=== PATIENT | male | born 1985 | race Caucasian/White ===

== ENCOUNTER 2025-05-23 08:34 | Emergency (ER) | payer OTHER, SELFPAY ==
--- OUTSIDE RECORDS SUMMARY | 2016-11-17 08:00 | XMS_ITS | Continuity of Care Document ---
Author Organization [place] [facility] Address [address] [place] [address] Phone Care Team Providers Care Petrographer Name Role Phone Services, Enabling Unavailable Unavailable Procedures Procedure Date Other Managed Care Other Managed Care Advance Directives Directive Yes / No Effective Date File Name No Information Encounters Encounter Description Practice Location Reason(s) For Visit Diagnoses Date Provider Providers Copied on Encounter Peng [facility], [address], [place], [place], [id number], tel:[phone] Enabling Services No Information 7-201 7 Services Enabling. [address] [place], [address]. tel:[phone] Peng [facility], [address] [place] [address],[address], [place], [place], [id number], tel:[phone] Enabling Services No Information 3-201 7 Services Enabling. [address] [place], [address]. tel:[phone] Family History Family Member Type Diagnosis Age At Onset No Information Payers Payer name Insurance type Covered democrat ID Authoriza tion(s) No Information Social History Type Description Quantity Date Captured Comments Sex Male Smoking Status No Information Chief Complaint And Reason For Visit No Information Reason For Referral Reason For Referral No Information History Of Present Illness Encounter Date Complaint History Of Prese nt Illness No Information Functional Status Date Functional Assessmen t No Information Instructions Date Instruction Additional Infor mation No Information Assessments Type Assessment Date No Information Patient Care Teams Name Effective Dates (start - stop) Status Members No Information
--- OUTSIDE RECORDS SUMMARY | 2025-05-22 11:08 | XMS_ITS | Encounter Summary ---
Author Organization [facility] Address [address] [place] [id number] Phone Care Team Providers Care Shelter Director Name Role Phone Gabino Lilly NP Primary Care Provider Encounter Details Date Type Department Care Team (Late st Contact Info) Description 05/22/2025 11:08 AM EDT - 05/22/2025 11:09 AM EDT Emergency [facility] [address] [place] [address] Discharge Disposition: Left Without Being Seen Social History Tobacco Use Types Packs/Day Years Used Date Smoking Tobacco: Every Day Smokeless Tobacco: Never Alcohol Use Standard Drinks/Week Comments Yes 20 (1 standard drink = 0.6 oz pu re alcohol) Education Answer Date Recorded Are you interested in more education? Not on sonal e 12/30/2022 Are you concerned about learning? Not on file 12/30/2022 No 12/30/2022 No 12/30/2022 Food Answer Date Recorded Within the past 6 months we worried whether our food would run out before we got money to buy more. Never True 05/23/2025 Within the past 6 months the food we bought just didn't last and we didn't have enough money to get more. Never True Residential Stability Answer Date Recor ded What is your housing situation today? I have andressa sing 05/23/2025 How many times have you moved in the past 12 mon ths? One time 05/23/2025 Paying for Meds Answer Date Recorded Do you have trouble paying for medicines? No 05/23/2025 Paying Utility Bills Answer Date Record ed Do you have trouble paying your heating or elect ricity bill? No 05/23/2025 Transportation Answer Date Recorded Has the lack of transportati on kept you from medical appointments or from getting medications? No 05/23/2025 Digital Access Answer Date Recorded No 05/23/2025 Yes 05/23/2025 Do you have reliable internet access at home? Ye s 05/23/2025 Do you have a device (e.g., phone, tablet, computer) with a working camera? Yes 05/23/2025 Intimate Partner Violence Answer Date R ecorded Are you denied basic needs s uch as food, clothing, or medical care? No 05/23/2025 In the past 12 months have y ou been in a relationship with a person who hurts, threatens, or tries to control you? No 05/23/2025 Are you denied basic needs s uch as food, clothing, or medical care? No 05/23/2025 In the past 12 months have y ou been in a relationship with a person who hurts, threatens, or tries to control you? No 05/23/2025 Sex and Gender Information Value Date Recorded Sex Assigned at Male 07/09/2021 8:48 PM EDT Legal Sex Male 2:09 PM EDT Gender Identity Male 07/09/2021 8:48 PM EDT Sexual Orientation Choose not to disclose 2020 8:48 PM EDT documented as of this encounter Medications at Time of Discharge acetaminophen (TYLENOL) 650 MG CR tablet Take 650 mg by mouth 3 (three) times a day. For 3 days starting Thursday 03/2903/29/2025 doxepin (SINEQUAN) 50 MG capsule Take 100 mg by mouth nightly at bedtime as needed (insomnia/depr ession). 05/20/2024 DULoxetine (CYMBALTA) 60 MG capsule Take 60 mg by mouth daily. 06/20/2024 hydrOXYzine (VISTARIL) 50 MG capsule Take 50 mg by mouth nightly at bedtime as needed for anxiety. 06/27/2024 prazosin (MINIPRESS) 2 MG capsule Take 2 mg by mouth nightly at bedtime. 06/20/2024 propranoloL (INDERAL LA) 60 mg 24 hr capsule Take 60 mg by mouth daily. 05/20/2024 documented as of this encounter Plan of Treatment Not on file documented as of this encounter Visit Diagnoses Not on filedocumented in this encounter Care Teams Shelter Director Relationship Specialty Start Date End Date Gabino Lilly NP [address] [place] [address] PCP - General Family Medicine 07/09/21 documented as of this encounter Additional Source Comments The information contained in this document represents components of the legal health record. It is not the complete legal health record.[facility]
[2025-05-23 08:39] VITALS: BP 137/90; BP 149/102; PULSE 80; PULSE 92; RESP 16; TEMP 36; O2SAT 96; O2SAT 97; BMI 31.9
[2025-05-23 08:43] VITALS: BP 149/102; PULSE 92; RESP 16; TEMP 36; O2SAT 96
--- NOTE | 2025-05-23 08:52 | ECG_ITS ---
Test Reason : TO BE MEDICALLY CLEARED Blood Pressure : */* mmHG Vent. Rate : 81 BPM Atrial Rate : 81 BPM P-R Int : 130 ms QRS Dur : 86 ms QT Int : 410 ms P-R-T Axes : 29 38 11 degrees QTcB Int : 476 ms Normal sinus rhythm with sinus arrhythmia Normal ECG No previous ECGs available Referred By: Dima Nelson Electronically Signed By: YOSEF GASPAR
--- NOTE | 2025-05-23 08:52 | ED.GENADULT ---
HPI - General Adult General Chief complaint: General Medical Stated complaint: [facility],CLOS[facility] @ [facility] PER EMS Time Seen by Provider: 05/23/25 08:41 Source: patient and EMS Mode of arrival: EMS Limitations: no limitations History of Present Illness ED Provider: DR. Nelson HPI narrative: 40-year-old male with history of alcohol use last drink was yesterday at 09:00, patient brought in by ambulance from [facility] for medical clearance before detox rehab admission. Patient currently complain of symptoms, no SOB, no CP. Related Data Allergies Allergy/AdvReac Type Severity Reaction Status Date / Time No Known Allergies Allergy Verified 05/23/25 08:42 Review of Systems Review of Systems: All other systems are reviewed and are negative Constitutional: Reports as per HPI and Reports no additional constitutional complaints Eyes: Reports as per HPI and Reports no additional eye complaints Reports system reviewed and no additional complaints, except as documented Cardiovascular: Reports as per HPI and Reports no additional cardiovascular complaints Respiratory: Reports as per HPI and Reports no additional respiratory complaints Gastrointestinal: Reports as per HPI and Reports no additional gastrointestinal complaints Genitourinary: Reports no additional female genitourinary complaints Musculoskeletal: Reports no additional musculoskeletal complaints Skin/Breast: Reports system reviewed and no additional complaints, except as docu Psychiatric: Reports no additional psychiatric complaints Endocrine: Reports no additional endocrine complaints Hematologic/Lymphatic: Reports no additional hematologic/lymphatic complaints Allergic/Immunologic: Reports no additional allergic/immunologic complaints Reports system reviewed and no additional complaints, except as documented and Reports Abnormal speech present PMFSH Social History Social History Alcohol intake: current Smoked in Last 30 Days: No Use of substances other than those prescribed or required for medical reasons: No Advance Directives: No Advance Directives Information Provided: Yes Do you have a plan to hurt others: No Plan Physical Exam ED Vital Signs: Vital Signs - 24 hr 05/23/25 08:39 05/23/25 08:43 05/23/25 11:07 Temperature 96.8 F 96.8 F Pulse Rate 92 92 88 Respiratory Rate 16 16 18 Blood Pressure 149/102 H 149/102 H 161/87 H Pulse Oximetry 96 96 99 Oxygen Delivery Method Room Air Room Air Room Air BMI result Body Mass Index 31.9 Vital signs have been reviewed and appear to be correct. Blood pressure elevated. Heart rate normal. Respiratory rate normal. Temperature normal. Oxygen saturation normal. Appearance: Alert. Oriented X3. No acute distress. Head: Normal external exam. Normocephalic. Atraumatic. No Mckenzie signs noted. No raccoon eyes noted Eyes: PERRLA. EOMI. Conjunctiva and sclera normal. Eyelids normal. ENT: TM's Normal. Pharynx normal. Uvula midline. Moist mucous membranes. No trismus noted. No drooling noted. No muffled voice noted. Neck: Normal inspection. Neck supple. FROM. No adenopathy. Thyroid Normal. No meningeal signs. No neck mass noted. CVS: Normal heart rate and rhythm. Heart sound normal. No murmurs noted. Pulses normal throughout. Respiratory: No respiratory distress. Painless inspiration. Breath sounds normal. No wheezes/rales/rhonchi noted. Chest nontender. No accessory muscle usage noted or decreased air movement noted. Abdomen: Soft and nontender. Bowel sounds normal in all 4 quadrants. No distention noted. No organomegaly noted. No visible injury noted. Back: No CVA tenderness. Full range of motion noted. Skin: Skin warm and dry. Normal skin color. Normal skin turgor. No rashes/lesions/lacerations noted. Extremities: No lower extremity edema. Extremities exhibit normal range of motion. Extremities nontender. Neuro: Oriented X 3. Cranial nerve exam: II-XII are grossly intact No motor deficit. No sensory deficit. Reflexes normal. Course Reevaluation(s) Reevaluation #1: Medically cleared will discharge back to [place] rehab. Time: 11:24 Medications Administered Discontinued Medications Generic Name Dose Route Start Last Admin Trade Name Freq PRN Reason Stop Dose Admin Ibuprofen 800 mg 05/23/25 09:55 05/23/25 09:58 Ibuprofen 800 Mg Tablet PO 05/23/25 09:56 800 mg ONCE ONE Administration Phenobarbital 45 mg 05/23/25 11:13 05/23/25 11:16 Phenobarbital 15 Mg Tablet PO 05/23/25 11:14 45 mg ONCE ONE Administration Medical Decision Making Differential Diagnosis Differential Diagnoses: The differential diagnosis associated with the presentation includes (Medical clearance, electrolyte derangement, severe anemia.) Admission/Observation Consideration of admission/observation: Escalation of care including admission/observation considered Lab Data MDM Lab Attestation statement: I reviewed the patient's lab results. 05/23/25 09:52 05/23/25 09:52 Labs: Lab Results 05/23/25 Range/Units 09:52 WBC 5.9 (4.8-10.8) X10*3/uL RBC 4.27 L (4.60-5.80) X10*6/uL Hgb 13.7 L (14.0-18.0) g/dl Hct 38.3 L (42.0-52.0) % MCV 89.7 (80.0-98.0) fL MCH 32.1 (27.0-33.0) pg MCHC 35.8 (31.0-36.0) g/dl RDW 12.7 (11.0-16.0) % Plt Count 128 L (160-400) X10*3/uL MPV 8.5 L (9.4-12.4) fL Immature Gran % (Auto) 0.3 (0.0-0.4) % Neut % (Auto) 61.3 (45-73) % Lymph % (Auto) 18.5 L (20-40) % [place] % (Auto) 13.9 H (2-11) % Eos % (Auto) 5.1 H (0-4) % Baso % (Auto) 0.9 (0-2) % Lymph # (Auto) 1.1 L (1.2-4.9) X10*3/uL [place] # (Auto) 0.8 (0.1-1.2) X10*3/uL Eos # (Auto) 0.3 (0.0-0.4) X10*3/uL Baso # (Auto) 0.1 (0.0-0.2) X10*3/uL Abs Immat Gran (auto) 0.02 (0.00-0.03) X10*3/uL Absolute Neuts (auto) 3.6 (2.0-8.3) x10*3/uL Absolute Nucleated RBC 0.000 (0.0-0.012) X10*3/uL Nucleated RBC % (auto) 0.0 (0.0-0.2) /100WBC Sodium 139 (135-145) mmol/L Potassium 3.5 (3.3-5.1) mmol/L Chloride 100 (96-108) mmol/L Carbon Dioxide 29 (22-29) mmol/L Anion Gap 14 (12-20) BUN 8 L (9-16) mg/dL Creatinine 0.91 (0.5-1.4) mg/dL Estim Creat Clear Calc 123.3 Estimated GFR > 60 Random Glucose 103 (60-115) mg/dL Calcium 8.5 (8.4-10.2) mg/dL Total Bilirubin 1.7 H (0.0-1.0) mg/dL Direct Bilirubin 0.7 H (0.0-0.5) mg/dL AST 243 H (5-37) U/L ALT 249 H (0-40) U/L Alkaline Phosphatase 125 H (39-117) U/L Total Protein 7.0 (6.5-8.0) g/dL Albumin 4.2 (3.5-5.0) g/dL Lipase 6 L (8-78) U/L Urine Color Dark Yellow Urine Appearance Clear Urine pH 8.0 (5.0-9.0) Ur Specific [place] 1.015 (1.005-1.025) Urine Protein Negative (Neg-Trace) mg/dL Urine Glucose (UA) Negative (Negative) mg/dL Urine Ketones Negative (Negative) mg/dL Urine Blood Negative (Negative) Urine Nitrite Negative (Negative) Ur Leukocyte Esterase Negative (Negative) Ethyl Alcohol < 10 mg/dL Discharge Plan Discharge Clinical Impression: Medical clearance for psychiatric admission Patient Disposition: Home, Self-Care Instructions: Medical Clearance for Psychiatric Care (ED) Print Language: Khmer
--- NOTE | 2025-05-23 08:53 | PC.NURSE ---
40 M presents to ED to be medically cleared prior to detox at [place]. A+OX4, calm, cooperative, ambulatory. Pt denies any pain or discomfort. RR even and unlabored, denies CP or SOB. Spoke to the [facility] detox, they stated they need the following: EKG, CBC with diff, JOY, BMP, Liver panel to be faxed over to [phone]. Provider aware.
--- NOTE | 2025-05-23 09:55 | PC.NURSE ---
Pt requesting motrin at this time for TORREZ, provider aware, verbal order for motrin placed at this time.
--- NOTE | 2025-05-23 09:57 | MHC.EDTECH ---
Labs drawn/urine obtained sent.
[2025-05-23 09:58] LABS: MANUAL DIFF FLAG NO
[2025-05-23 09:59] LABS: Hematocrit 38.3 % (42.0-52.0); Hemoglobin 13.7 g/dl (14.0-18.0); Imm Gran Abs Auto 0.02 X10*3/uL (0.00-0.03); Imm Gran Pct Auto 0.3 % (0.0-0.4); Lymphocytes Absolute Auto 1.1 X10*3/uL (1.2-4.9); Mean Corpuscular HGB Conc 35.8 g/dl (31.0-36.0); Mean Corpuscular Hemoglobin 32.1 pg (27.0-33.0); Mean Corpuscular Volume 89.7 fL (80.0-98.0); NRBC Abs Auto 0.000 X10*3/uL (0.0-0.012); NRBC Pct Auto 0.0 /100WBC (0.0-0.2); Platelet Count 128 X10*3/uL (160-400); Red Blood Count 4.27 X10*6/uL (4.60-5.80); White Blood Count 5.9 X10*3/uL (4.8-10.8)
[2025-05-23 10:00] LABS: Appearance Urine Clear; Glucose Urine UA Negative (Negative); PH 8.0 (5.0-9.0); Specific Gravity - Urine 1.015 (1.005-1.025)
[2025-05-23 10:16] LABS: Alanine Aminotransferase 249 U/L (0-40); Albumin Level 4.2 g/dL (3.5-5.0); Alkaline Phosphatase 125 U/L (39-117); Anion Gap 14 (12-20); Aspartate Amino Transferase 243 U/L (5-37); Blood Urea Nitrogen 8 mg/dL (9-16); Calcium 8.5 mg/dL (8.4-10.2); Carbon Dioxide 29 mmol/L (22-29); Chloride 100 mmol/L (96-108); Creatinine Clr Calc Pharmacy 123.3; Estimated Glomerular Filt Rate > 60; Lipase 6 U/L (8-78); Potassium 3.5 mmol/L (3.3-5.1); Sodium 139 mmol/L (135-145); Total Protein 7.0 g/dL (6.5-8.0)
--- OUTSIDE RECORDS SUMMARY | 2025-05-23 10:35 | XMS_ITS | Clinical Summary ---
Author Organization [facility] Address [address] [facility] [address] [place] [phone] Phone Care Team Providers Care Livestock Showman Name Role Phone Gabino Lilly NP Primary Care Provider [phone] Allergies No known active allergies Medications acetaminophen (TYLENOL) 650 MG CR tablet Take 650 mg by mouth 3 (three) times a day. For 3 days starting Thursday 03/29 5 Active doxepin (SINEQUAN) 50 MG capsule Take 100 mg by mouth nightly at bedtime as needed (insomnia/depre ssion). 4 Active hydrOXYzine (VISTARIL) 50 MG capsule Take 50 mg by mouth nightly at bedtime as needed for anxiety. 4 Active DULoxetine (CYMBALTA) 60 MG capsule Take 60 mg by mouth daily. 4 Active prazosin (MINIPRESS) 2 MG capsule Take 2 mg by mouth nightly at bedtime. 4 Active propranoloL (INDERAL LA) 60 mg 24 hr capsule Take 60 mg by mouth daily. 4 Active amoxicillin-cl avulanate (AUGMENTIN) 875-125 mg per tablet Take 1 tablet (875 mg of amoxicillin total) by mouth 2 (two) times a day. 14 tablet 4 05/22/20 Discontin ued(No longer taking) cefpodoxime (VANTIN) 200 MG tablet Take 200 mg by mouth 2 (two) times a day. For 7 days starting Sunday03/29/25 5 05/22/20 25 Discontin ued(No longer taking) doxycycline hyclate (DORYX) 100 MG tablet Take 100 mg by mouth 2 (two) times a day. For 7 days starting Sunday03/29/25 05/22/20 Discontin ued(No longer taking) Active Problems Problem Noted Date Diagnosed Date Alcohol withdrawal syndrome without complication 05/22/2025 Assessment & Plan (05/22/2025 11:25 PM EDT): -Patient has been drinking heavily for the past 3 days about 1 handle of vodka daily -He is tachycardic with nausea, vomiting, elevated lactate, elevated LFTs -He received a loading dose of phenobarbital and a rescue dose of 130 mg (slightly less than 2 mg/kg) - Continue thiamine, folate, multivitamin -IVF -Given prior history, follow-up U tox -Follow-up social work consult -Trend LFTs Smoker 05/22/2025 Assessment & Plan (05/22/2025 11:25 PM EDT): - Smoking cessation advised, nicotine patch ordered Suicidal ideation 03/30/2025 Encounters Date Type Department Care Team Description 05/22/2025 4:09 PM EDT - 05/23/2025 7:06 AM EDT Hospital Encounter [facility] Telemetry [facility] [address] [place] [address] Moses Cruz MD Israeli, Diana A, DO Green, Tracy L, MD Discharge Disposition: Home or Self Care 05/22/2025 11:08 AM EDT - 05/22/2025 11:09 AM EDT Emergency [facility] [address] [place] [address] Discharge Disposition: Left Without Being Seen 03/31/2025 6:00 PM EDT Ancillary Procedure [facility] Emergency Department - [facility] [address] [place] [address] Agustín Rodrigez MD 03/30/2025 3:21 PM EDT - 03/31/2025 7:48 PM EDT Hospital Encounter [facility] Emergency [address] [place] [address] Duane, Pierce T, MD DayAlana rubio MD Noone, Caleb J, MD Andrade, Olyn Amanda, MD Discharge Disposition: Home or Self Care from Last 3 Months Social History Tobacco Use Types Packs/Day Years [...] have you moved in the past 12 sun th? One time 05/23/2025 Paying for Meds Answer [...] not to disclose 2020 8:48 PM EDT Last Filed Vital Signs Vital Sign Reading Time Taken Comments Blood Pressure 154/92 05/23/2025 4:00 AM EDT Pulse 95 05/23/2025 4:00 AM EDT Temperature 36.6 C (97.9 F) 05/23/2025 4:00 AM EDT Respiratory Rate 18 05/23/2025 4:00 AM EDT Oxygen Saturation 98% 05/23/2025 4:00 AM EDT Inhaled Oxygen Concentration - - Weight 95.8 kg (211 lb 1.6 oz) 05/23/2025 12:00 AM EDT Height 175.3 cm (5' 9 ) 05/23/2025 12:00 AM EDT Body Mass Index 31.17 05/23/2025 12:00 AM EDT Plan of Treatment Health Maintenance Due Date Last Done Comments DEPRESSION SCREENING 1996 SMOKING Hx and SMOKELESS TOBACCO SCREENING 1997 PNEUMOCOCCAL VACCINES (0-49 years) (1 of 2 - PCV) 2003 LIPID PANEL 06/09/2016 06/09/2011 INFLUENZA VACCINE (#1) 2025 05/04/2022 COVID-19 VACCINE (1 - 2023-2 5 season) 2025 Adult Td,Tdap Booster 08/04/2026 08/04/2016 SCREENING FOR DIABETES 03/30/2028 03/30/2025 HEPATITIS C SCREENING Completed 03/30/2025 , 03/26/2025, 03/26/2025 HIV ONE-TIME SCREENING (18-6 5 YEARS) Completed 03/30/2025 HEPATITIS A VACCINES Aged Out No long er eligible based on patient's age to complete this topic HIB VACCINES Aged Out No longer eligi ble based on patient's age to complete this topic MENINGOCOCCAL VACCINES (ACWY) Aged Out No longer eligible based on patient's age to complete this topic MENINGOCOCCAL VACCINES (B) Aged Out N o longer eligible based on patient's age to complete this topic Medical Devices Not on file Procedures Procedure Name Priority Date/Time Associated Diagnosis Comments TOXICOLOGY SCREEN, URINE STAT 05/23/2025 12:11 AM EDT LACTIC ACID (LACTATE) STAT 05/22/2025 9:48 PM EDT LACTIC ACID (LACTATE) STAT 05/22/2025 7:52 PM EDT ETHANOL, BLOOD STAT 05/22/2025 6:28 PM EDT PHOSPHORUS STAT 05/22/2025 4:47 PM EDT MAGNESIUM STAT 05/22/2025 4:47 PM EDT LIPASE STAT 05/22/2025 4:47 PM EDT LACTIC ACID (LACTATE) STAT 05/22/2025 4:47 PM EDT LFTS (HEPATIC PANEL) STAT 05/22/2025 4:47 PM EDT BASIC METABOLIC PANEL STAT 05/22/2025 4:47 PM EDT CBC AND DIFFERENTIAL STAT 05/22/2025 4:47 PM EDT US BEDSIDE Routine 03/31/2025 5:56 PM EDT ECG 12-LEAD STAT 03/31/2025 1:13 PM EDT COVID PANDEMIC RESPIRATORY VIRAL ORDER (PRO) Routine 03/31/2025 1:05 PM EDT HIV-1/2 ANTIGEN/ANTIBODY STAT 03/30/2025 10:30 PM EDT HEPATITIS B CORE ANTIBODY, TOTAL STAT 03/30/2025 10:29 PM EDT HEPATITIS B SURFACE ANTIGEN STAT 03/30/2025 10:29 PM EDT HEPATITIS C ANTIBODY, QUALITATIVE STAT 03/30/2025 10:29 PM EDT POCT GLUCOSE Routine 03/30/2025 3:54 PM EDT ECG 12-LEAD STAT 03/30/2025 3:47 PM EDT SALICYLATES STAT 03/30/2025 3:44 PM EDT ACETAMINOPHEN LEVEL STAT 03/30/2025 3 :44 PM EDT ETHANOL, BLOOD STAT 03/30/2025 3:44 PM EDT LFTS (HEPATIC PANEL) STAT 03/30/2025 3:44 PM EDT BASIC METABOLIC PANEL STAT 03/30/2025 3:44 PM EDT CBC AND DIFFERENTIAL STAT 03/30/2025 3:44 PM EDT TOXICOLOGY SCREEN, URINE STAT 03/30/2025 3:38 PM EDT from Last 3 Months Results * (ABNORMAL) Toxicology screen, urine (05/23/2025 12:11 AM EDT) Only the most recent of2 resultswithin the time period is included. URINE CANNABINOIDS NONE DETECTED NONE DETECTED [facility] Comment:Cutoff: 50 ng/mL URINE COCAINE METAB Positive(A) NONE DETECTED [facility] Comment:Cutoff: 300 ng/mL URINE AMPHETAMINES NONE DETECTED NONE DETECTED [facility] Comment:Cutoff: 1000 ng/mL URINE METHADONE NONE DETECTED NONE DETECTED [facility] Comment:Cutoff: 300 ng/mL URINE OPIATES NONE DETECTED NONE DETECTED [facility] Comment:Cutoff: 300 ng/mL URINE PHENCYCLIDINE NONE DETECTED NONE DETECTED [facility] Comment:Cutoff: 25 ng/mL URINE OXYCODONE NONE DETECTED NONE DETECTED [facility] Comment:Cutoff: 300 ng/mL URINE BARBITURATES Positive(A) NONE DETECTED [facility] Comment:Cutoff: 200 ng/mL URINE BENZODIAZEPINE NONE DETECTED NONE DETECTED [facility] Comment:Cutoff: 200 ng/mL URINE BUPRENORPHINE NONE DETECTED NONE DETECTED [facility] Comment:Cutoff: 5 ng/mL Fentanyl, urine NONE DETECTED NONE DETECTED [facility] Comment: Cutoff: 5 ng/mL INTERPRETATION FOR TOXICOLOGY PANEL: These results are unconfirmed and should be used for Medical Treatment purposes only. Urine (Urine) 05/23/2025 12: 11 AM EDT 05/23/2025 12:22 AM EDT Emerita Kevin DO URINE ORDERABLES Final Result Performing Organization Address City/[facility]/ZIP Co de Phone Number [address] [address] * (ABNORMAL) Lactate (05/22/2025 9:48 PM EDT) Only the most recent of3 resultswithin the time period is included. LACTATE 3.68(HH) 0.50 - 2.20 mmol/L [facility] Comment: Critical value: Results called to and read back by: EDIS Rai ED AT [id number] Blood 05/22/2025 9:48 PM EDT 05/22/2025 9:53 PM EDT Moses Cruz MD LAB BLOOD ORDERABLES Final Resu lt [address] [address] * (ABNORMAL) Ethanol, blood (05/22/2025 6:28 PM EDT) Only the most recent of2 resultswithin the time period is included. ETHANOL 42(H) <10 mg/dL [facility] Blood 05/22/2025 6:28 PM EDT 05/22/2025 6:51 PM EDT us Moses Cruz MD LAB BLOOD ORDERABLES Final Resu lt Performing Organization Address City/[facility]/ZIP Co de Phone Number [address] [address] * (ABNORMAL) LFTs (hepatic panel) (05/22/2025 4:47 PM EDT) Only the most recent of2 resultswithin the time period is included. ALKALINE PHOSPHATASE 149(H) 39 - 117 U/L [facility] TOTAL BILIRUBIN 1.3(H) 0.0 - 1.2 mg/dL [facility] DIRECT BILIRUBIN 0.6(H) 0.0 - 0.2 mg/dL [facility] Bilirubin (Indirect) 0.7 0 - 1.5 mg/dL [facility] AST 212(H) 0 - 37 U/L [facility] ALT 225(H) 0 - 40 U/L [facility] TOTAL PROTEIN 8.8(H) 6.5 - 8.0 g/dL [facility] ALBUMIN 4.6 3.9 - 4.8 g/dL [facility] GLOBULIN 4.2 1 - 4.8 g/dL [facility] A/G Ratio 1.10 1.00 - 4.80 RATIO [facility] Blood 05/22/2025 4:47 PM EDT 05/22/2025 4:53 PM EDT Moses Cruz MD LAB BLOOD ORDERABLES Final Resu lt Performing Organization Address [facility]/ZIP Co de Phone Number [address] [address] * (ABNORMAL) CBC and differential (05/22/2025 4:47 PM EDT) Only the most recent of2 resultswithin the time period is included. WBC 9.25 4.00 - 11.00 K/uL [facility] RBC 5.19 4.50 - 5.90 M/uL [facility] HGB 16.6 13.5 - 17.5 g/dL [facility] HCT 46.0 41.0 - 53.0 % [facility] PLT 237 150 - 450 K/uL [facility] MCV 88.6 80.0 - 100.0 fL [facility] MCH 32.0(H) 27.0 - 31.0 pg [facility] MCHC 36.1(H) 32.0 - 36.0 g/dL [facility] RDW 12.8 11.5 - 14.5 % [facility] MPV 9.1 8.4 - 12.0 fL [facility] NRBC 0.00 0.00 /100 WBCs [facility] ABSOLUTE NRBC 0.00 0.00 K/uL [facility] DIFF METHOD Auto [facility] NEUTS 72.1 48.0 - 76.0 % [facility] LYMPHS 14.3(L) 18.0 - 41.0 % [facility] MONOS 10.8 4.0 - 11.0 % [facility] EOS 1.2 0.0 - 5.0 % [facility] BASOS 0.8 0.0 - 1.5 % [facility] Granulocytes, immature (%) 0.8 0.0 - 0.9 % [facility] ABSOLUTE NEUTS 6.68 1.92 - 7.60 K/uL [facility] ABSOLUTE LYMPHS 1.32 0.72 - 4.10 K/uL [facility] ABSOLUTE MONOS 1.00 0.16 - 1.10 K/uL [facility] ABSOLUTE EOS 0.11 0.00 - 0.50 K/uL [facility] ABSOLUTE BASOS 0.07 0.00 - 0.15 K/uL [facility] Granulocytes, immature 0.07 0.00 - 0.09 K/uL [facility] Blood 05/22/2025 4:47 PM EDT 05/22/2025 4:53 PM EDT us Moses Cruz MD LAB BLOOD ORDERABLES Final Resu lt [facility] [address] [place] [address] * Phosphorus (05/22/2025 4:47 PM EDT) PHOSPHORUS 3.2 2.7 - 4.5 mg/dL [facility] Blood 05/22/2025 4:47 PM EDT 05/22/2025 4:53 PM EDT us Moses Cruz MD LAB BLOOD ORDERABLES Final Resu lt Performing Organization Address City/[facility]/ZIP Co de Phone Number [address] [address] * Magnesium (05/22/2025 4:47 PM EDT) Pathologist [facility] [place] MAGNESIUM 2.0 1.6 - 2.6 mg/dL [facility] Blood 05/22/2025 4:47 PM EDT 05/22/2025 4:53 PM EDT us Moses Cruz MD LAB BLOOD ORDERABLES Final Resu lt Performing Organization Address [facility] Co de Phone Number [address] [address] * (ABNORMAL) Lipase (05/22/2025 4:47 PM EDT) [facility] LIPASE 13(L) 16 - 63 U/L [facility] Blood 05/22/2025 4:47 PM EDT 05/22/2025 4:53 PM EDT us Moses Cruz MD LAB BLOOD ORDERABLES Final Resu lt Performing Organization Address [facility] Co de Phone Number [address] [address] * (ABNORMAL) Basic metabolic panel (05/22/2025 4:47 PM EDT) Only the most recent of2 resultswithin the time period is included. Pathologist [facility] [place] SODIUM 141 133 - 146 mmol/L [facility] CHLORIDE 97 96 - 108 mmol/L [facility] POTASSIUM 3.7 3.3 - 5.1 mmol/L [facility] CO2 23 21 - 35 mmol/L [facility] BUN 4(L) 6 - 19 mg/dL [facility] CREATININE 1.00 0.5 - 1.5 mg/dL [facility] GLUCOSE 131(H) 70 - 99 mg/dL [facility] CALCIUM 9.5 8.4 - 10.3 mg/dL [facility] EGFR 97 >59 mL/min/1.7 3m2 [facility] Comment:Estimated glomerular filtration rate calculated using the CKD-EPI refit equation. ANION GAP 25(H) 10 - 20 mmol/L [facility] Blood 05/22/2025 4:47 PM EDT 05/22/2025 4:53 PM EDT us Moses Cruz MD LAB BLOOD ORDERABLES Final Resu lt Performing Organization Address City/State/[facility] Co de Phone Number [address] [address] * US BEDSIDE (03/31/2025 5:56 PM EDT) Anatomical Region Laterality Modality Ultrasound Narrative 03/31/2025 5:56 PM EDT Agustín Rodrigez MD 04/03/2025 2:11 AM Bedside Ultrasound Date/Time: 03/31/2025 5:56 PM Performed by: Nury Lange PA-C Authorized by: Agustín Rodrigez MD Exam Type: Soft Tissue Soft Tissue Exam Findings & Impression: Indications: patient with erythema Body Area: Upper extremity Laterality: Right Upper Extremity Location Details: Right arm Fluid Collection: the soft tissue was visualized and no fluid collection was identified Overall Impressions: negative Images: Images Saved: Yes Accession Number: [id number] us Agustín Rodrigez MD IMG POINT OF CARE EXAMS F inal Result * ECG 12-LEAD (03/31/2025 1:13 PM EDT) Only the most recent of2 resultswithin the time period is included. Ventricular Rate EKG/MIN 89 BPM [facility] Atrial Rate 89 BPM [facility] OH Interval 136 ms [facility] QRS Duration 84 ms [facility] QT Interval 384 ms [facility] QTC Interval 467 ms [facility] P [place] 41 degrees [facility] R Wave [place] 47 degrees [facility] T Wave [place] -4 degrees [facility] 03/31/2025 1:13 PM EDT 04/01/2025 7:30 PM EDT Narrative [facility] - 04/01/2025 7:30 PM EDT Normal sinus rhythm Normal ECG When compared with ECG of 30-Mar-2025 15:47, Nonspecific T wave abnormality no longer evident in Lateral leads Confirmed by Carlito ALBERT ([id number]) on 04/01/2025 7:30:55 PM Moses Cruz MD ECG ORDERABLES Final Result Performing Organization Address [facility] Co de Phone Number [email or web address] * COVID Pandemic Respiratory Viral Order (PRO) (03/31/2025 1:05 PM EDT) Test Ordered Rapid COVID has been ordered [facility] Specimen Source/Description NASAL [facility] SARS-CoV 2 (COVID-19) PCR Not Detected Not Detected [facility] Comment: SARS-CoV-2 not detected Negative results do not preclude SARS-CoV-2 infection and should not be used as the sole basis for patient management decisions. Negative results must be combined with clinical observations, patient history, and epidemiological information. Other (Nasal swab) 03/31/2025 1:05 PM EDT 03/31/2025 1:42 PM EDT Moess Cruz MD BODY FLUIDS AND STOOLS ORDERABL ES Final Result Performing Organization Address City/[facility]/ZIP Co de Phone Number [facility] [address] [place] [address] * HIV-1/2 antigen/antibody (03/30/2025 10:30 PM EDT) HIV-1/2 Antigen/Antibo dy NON-REACTI VE NON-REACTI VE [facility] Blood 03/30/2025 10:3 0 PM EDT 03/30/2025 10:44 PM EDT us Pierce Zepeda MD LAB BLOOD ORDERABLES Final Re sult Performing Organization Address City/[facility]/ZIP Co de Phone Number [address] [address] * Hepatitis C antibody, qualitative (03/30/2025 10:29 PM EDT) HCV NON-REACTIV E NON-REACTI VE [facility] Blood 03/30/2025 10:2 9 PM EDT 03/30/2025 10:44 PM EDT us Pierce Zepeda MD LAB BLOOD ORDERABLES Final Re sult Performing Organization Address [facility]/ZIP Co de Phone Number [address] [address] * Hepatitis B core antibody, total (03/30/2025 10:29 PM EDT) HEP B CORE AB, TOT NON-REACTI VE NON-REACTI VE [facility] Blood 03/30/2025 10:2 9 PM EDT 03/30/2025 10:44 PM EDT us Pierce Zepeda MD LAB BLOOD ORDERABLES Final Re sult Performing Organization Address [facility]/ZIP Co de Phone Number [address] [address] * Hepatitis B surface antigen (03/30/2025 10:29 PM EDT) HBV SURFACE ANTIGEN NON-REACTI VE NON-REACTI VE [facility] Blood 03/30/2025 10:2 9 PM EDT 03/30/2025 10:44 PM EDT us Pierce Zepeda MD LAB BLOOD ORDERABLES Final Re sult Performing Organization Address City/[facility]/ZIP Co de Phone Number [address] [address] * POCT Glucose (03/30/2025 3:54 PM EDT) Glucose, POCT 87 70 - 100 mg/dL [facility] 03/30/2025 3:54 PM EDT 03/30/2025 3:56 PM EDT us Unknown Unknown MD POINT OF CARE TEST ORDERABLES Final Result Performing Organization Address [facility]/ZIP Co de Phone Number [address] [address] * (ABNORMAL) Acetaminophen level (03/30/2025 3:44 PM EDT) ACETAMINOPHEN <5.0(L) 15.0 - 30.0 ug/mL [facility] Blood 03/30/2025 3:44 PM EDT 03/30/2025 3:59 PM EDT us Pierce Zepeda MD LAB BLOOD ORDERABLES Final Re sult Performing Organization Address [facility]/ZIP Co de Phone Number [address] [address] * (ABNORMAL) Salicylates (03/30/2025 3:44 PM EDT) SALICYLATES <0.3(L) 2.8 - 19.9 mg/dL [facility] Blood 03/30/2025 3:44 PM EDT 03/30/2025 3:59 PM EDT us Pierce Zepeda MD LAB BLOOD ORDERABLES Final Re sult Performing Organization Address [facility]/ZIP Co de Phone Number [address] [address] from Last [address] [place] [address] Advance Directives For more information, please contact: [phone] (9AM - 5PM [place]/[facility], Sunday-Sunday) * Full Code (Latest Code Status on File) Date Activated Date Inactivated Comments 05/22/2025 11:18 PM Question Answer Comments Code Status Confirmed With: Patient Care Teams Livestock Showman Relationship Specialty Start Date End Date Gabino Lilly NP [address] [place] [id number] PCP - General Family Medicine 07/09/21 Additional Source Comments The information contained in this document represents components of the legal health record. It is not the complete legal health record.[facility]
--- OUTSIDE RECORDS SUMMARY | 2025-05-23 10:35 | XMS_ITS | Clinical Summary ---
Author Organization [facility] Address [address] [place], [place] [id number] Care Team Providers Care Melt Supervisor Name Role Phone Shira Erwin MD Unavailable [phone] Unknown, Provider Primary Care Provider Unava ilable Allergies No known active allergies Social History Tobacco Use Types Packs/Day Years Used Date Smoking Tobacco: Never Assessed Sex and Gender Information Value Date Recorded Sex Assigned at Male 07/31/2023 5:54 AM EST Legal Sex Male 5:53 AM EST Gender Identity Male 07/31/2023 5:54 AM EST Sexual Orientation Not on file Last Filed Vital Signs Vital Sign Reading Time Taken Comments Blood Pressure 143/84 05/04/2024 3:19 PM EDT Pulse 104 05/04/2024 5:30 PM EDT Temperature 36.1 C (97 F) 05/04/2024 3:19 PM EDT Respiratory Rate 23 05/04/2024 5:30 PM EDT Oxygen Saturation 91% 05/04/2024 5:30 PM EDT Inhaled Oxygen Concentration - - Weight - - Height 175.3 cm (5' 9 ) 05/04/2024 3:19 PM EDT Body Mass Index - - Plan of Treatment Health Maintenance Due Date Last Done Comments Depression Screening 1988 Hepatitis C Screening 2002 Lipid Panel 06/09/2016 06/09/2011 Blood Pressure 05/04/2025 05/04/2024 COVID-19 Vaccine ( season) 2025 08/21/2021, 11/28/2020, 11/06/2020 Influenza Vaccine (#1) 2025 2, 07/13/2017, 09/18/2013, Additional history exists DTaP,Tdap,and Td Vaccines (11 - Td or Tdap) 08/04/2026 08/04/2016, 01/05/2015, 11/26/2013, Additional history exists Meningococcal Vaccines Aged Out 05/11/2009 No lo nger eligible based on patient's age to complete this topic Pneumococcal Vaccine: Pediatrics (0 to 5 Years) and At-Risk Patients (6 to 64 Years) Aged Out 01/05/2015 No longer eligible based on patient's age to complete this topic Meningococcal B Vaccines Aged Out No longer eligible based on patient's age to complete this topic Insurance [facility] [employer] ([place] Address: [facility] [id number] [place] [phone] [facility] [employer] PLANS [facility] PLANS Care Teams Melt Supervisor Relationship Specialty Start Date End Date Shira Erwin MD [address] [place] [id number] PCP - Insurance Assigned PCP 05/04/24 Unknown, Provider, [address] [place] [phone] PCP - General 05/04/24
[2025-05-23 11:07] VITALS: BP 161/87; PULSE 88; RESP 18; O2SAT 99
[2025-05-23 11:25] VITALS: BP 161/87; PULSE 88; RESP 18; TEMP -17.7; TEMP 0; O2SAT 99
--- NOTE | 2025-05-23 12:37 | PC.NURSE ---
back charting: ordered IM protocol for phenobarb, however goal was to still DC pt at this time to rehab. IM DC'd and verbal order placed for 45mg 1x dose of PO phenobarb. Pt in agreement with plan, pharmacy called and notified, orders changed to reflect. Pt DC paperwork in, Alejandra thapa booked at this time, pt escorted out of ED stable on RA.
== END 2025-05-23 11:25 | disposition home or self-care (01) ==
PROVIDERS: Emergency Provider Emergency Medicine
DX: F10.90 Alcohol use, unspecified, uncomplicated (principal); Z04.6 Encounter for general psychiatric examination, requested by authority
CPT/HCPCS: 36415; 80048; 80076; 80307; 81003; 83690; 85025; 93005; 99284; 99285

== ENCOUNTER → 2025-05-23 08:52 | Outpatient (BNV) | payer OTHER, SELFPAY | PROVIDERS: Emergency Provider Emergency Medicine; Visit Provider Internal Medicine | DX: Z13.6 Encounter for screening for cardiovascular disorders (principal) | CPT/HCPCS: 93010 ==

== ENCOUNTER 2025-05-23 14:12 | Emergency (ER) | payer OTHER, SELFPAY ==
[2025-05-23 14:21] VITALS: BP 146/86; PULSE 106; RESP 18; TEMP 36.1; O2SAT 97; BMI 33.4
--- NOTE | 2025-05-23 14:26 | ED.GENADULT ---
HPI - General Adult General Chief complaint: Psychiatric Symptoms Stated complaint: [facility] Time Seen by Provider: 05/23/25 14:23 Source: patient and EMS Mode of arrival: EMS Limitations: no limitations History of Present Illness ED Provider: MONICO SHIN PA-C HPI narrative: 40 year old male with pmhx significant for etoh abuse presents to the ED today via EMS from [facility]. Patient was evaluated at our facility this morning for medical clearance before going to [place]. After being medically cleared, he was provided with a lift to the [place]. On arrival there, they were unable to accept him as he did not arrive via ambulance. As a result, patient was transported back to our facility via [facility]. At present, patient endorses SI without plan due to stress surrounding the situation. He admits to consuming a few nips prior to arrival. He reports consuming alcohol over the last four days. Prior to this, he was sober for several months. 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 Related Data Allergies Allergy/AdvReac Type Severity Reaction Status Date / Time No Known Allergies Allergy Verified 05/23/25 14:23 Review of Systems Review of Systems: Yes all other systems are reviewed and are negative PMFSH Past Medical History Attestation statement: The following information was validated with the patient. Source: old records reviewed and nursing notes reviewed Social History Social History Alcohol intake: current Use of substances other than those prescribed or required for medical reasons: Yes Substance Use Type: Crack/Cocaine Advance Directives: No Advance Directives Information Provided: Yes Physical Exam ED Vital Signs: Vital Signs - 24 hr 05/24/25 16:20 05/24/25 18:51 05/24/25 18:52 Temperature 97.7 F 98.0 F 98.0 F Pulse Rate 138 H 114 H 114 H Respiratory Rate 16 16 16 Blood Pressure 124/75 122/79 122/79 Pulse Oximetry 98 99 99 Oxygen Delivery Method Room Air Room Air Room Air BMI result Body Mass Index 33.4 hypertensive, tachycardic General: Well appearing, in no acute distress. Skin: Warm, dry, intact. No rashes or lesions. Head: Normocephalic, atraumatic. EENT: Hearing is intact b/l. Conjunctiva clear. PERRLA. EOM intact. Moist mucous membranes.? Cardiac: Chest wall symmetric. RRR. Lungs: Normal respiratory effort without accessory muscle use. CTA bilaterally Abdomen: Soft, non-tender, non-distended. No rebound tenderness or guarding. Positive BS x4. Back: No midline spinous or paraspinal tenderness. No step off deformity. Ext: Upper and lower extremities atraumatic, without tenderness, deformity, swelling or erythema Neuro: AOx3. Normal speech. CN 2-12 grossly intact. Ambulating with steady gait. Psych: Appropriate mood and affect. Responds appropriately to questions. Course Course Course Narrative: 1915 -- Blood work obtained this morning around 1000 does not demonstrate leukocytosis or left shift. there is normocytic anemia, H&H above transfusion threshold. No priors to compare to. Chemistry without acute electrolyte abnormality requiring intervention. Transaminitis secondary to ETOH abuse. UA without infection. Ethanol undetectable this morning. ethanol elevated to 82. drug screen urine pending. > I spoke with Rafia from care team. Patient will be inpatient bed search. > placed in physician observation at this time. Reevaluation(s) Reevaluation #1: Time: Date: 05/24/25 Provider: DR. Nelson Patient in physician observation for psychiatric evaluation.? No acute events reported overnight. No current complaints. VS stable.? Patient is in bed search status. Will continue to monitor. Medications Administered Discontinued Medications Generic Name Dose Route Start Last Admin Trade Name Freq PRN Reason Stop Dose Admin Acetaminophen 650 mg 05/23/25 19:20 05/24/25 08:16 Acetaminophen 325 Mg Tablet PO 650 mg TID PRN Administration headache Diazepam 10 mg 05/24/25 18:44 05/24/25 18:46 Diazepam 5 Mg Tablet PO 05/24/25 18:45 10 mg ONCE ONE Administration Duloxetine HCl 60 mg 05/23/25 19:30 05/24/25 08:17 Duloxetine Hcl 60 Mg Capsule. PO 60 mg DAILY SANJAY Administration Hydroxyzine HCl 25 mg 05/23/25 15:46 05/23/25 16:48 Hydroxyzine Hcl 25 Mg Tablet PO 05/23/25 15:47 25 mg ONCE ONE Administration Lorazepam 2 mg 05/23/25 19:20 05/23/25 19:48 Lorazepam 1 Mg Tablet PO 09/20/25 19:21 2 mg ONCE ONE Administration Lorazepam 1 mg 05/23/25 19:21 05/24/25 16:41 Lorazepam 1 Mg Tablet PO 1 mg TID PRN Administration Alcohol Withdrawal Quetiapine Fumarate 200 mg 05/23/25 21:00 05/24/25 08:17 Quetiapine Fumarate 200 Mg Tablet PO 200 mg BID SANJAY Administration Medical Decision Making Medical Decision Making [facility] Narrative: 40 year old male with pmhx significant for etoh abuse presents to the ED today via EMS from [facility]. Differential diagnosis includes anxiety, depression, SI, polysubstance abuse, etoh abuse, etoh withdrawal Presentation not consistent with acute organic causes to include delirium, dementia or drug induced disorders (acute ingestions or withdrawal; no evidence of toxidrome).? Will consult care team to evaluate the patient. Will review basic labs obtained this morning. Care team requesting serum ethanol and urine drug screen which has been ordered. Plan: ethanol/UDS, care team consultation, reassessment Differential Diagnosis Differential Diagnoses: The differential diagnosis associated with the presentation includes as above Admission/Observation Consideration of admission/observation: Escalation of care including admission/observation considered Lab Data [facility] Lab Attestation statement: I reviewed the patient's lab results. As above Labs: Lab Results 05/23/25 05/23/25 Range/Units 15:16 18:37 Urine Opiates Screen Not Detected (Not Detect) Ur Buprenorphine Scrn Positive H (Not Detect) ng/mL Ur Oxycodone Screen Not Detected (Not Detect) ng/mL Urine Methadone Screen Not Detected (Not Detect) ng/mL Urine Fentanyl Screen Not Detected (Not Detect) Ur Barbiturates Screen POSITIVE H (Not Detect) Ur Phencyclidine Scrn Not Detected (Not Detect) Ur Amphetamines Screen Not Detected (Not Detect) U Benzodiazepines Scrn Not Detected (Not Detect) Urine Cocaine Screen POSITIVE H (Not Detect) U Marijuana (THC) Screen Not Detected (Not Detect) Ethyl Alcohol 82 mg/dL Independent Historian Clinical information obtained from an independent historian. History obtained from or confirmed by: EMS External Record Review External record reviewed: Inpatient record Chronic Conditions Patient?s care impacted by: Other (etoh abuse) Social Determinants Patient?s care significantly limited by Social Determinants of Health including: Other Social Determinant of Health Critical Care Time Critical Care Time Critical Care Time: No Discharge Plan Discharge Clinical Impression: ETOH abuse, Suicidal ideation Patient Disposition: Xfer Psychiatric Hosp Transfer Details: [facility] Interventions: [place]-Suicide Risk Severity Scale Last Done: 05/24/25 16:17 Acute Care Transfer Worksheet (ED) Last Done: 05/24/25 18:52 Discharge Date/Time: 05/24/25 18:53 Print Language: Portuguese
--- NOTE | 2025-05-23 14:52 | PC.NURSE ---
pt reported that he had a few nips [employer] after being refused at [facility]. utox and BAL needed before CARE assessment
--- NOTE | 2025-05-23 18:30 | MHC.CARE ---
[facility]
[2025-05-23 18:58] LABS: Cannabinoid Screen Urine Not Detected (Not Detect)
--- NOTE | 2025-05-23 19:28 | PC.NURSE ---
Assumed care of this patient at 19:00. Patient alert and oriented x4, able to make his needs known. Patient reports SI with no plan at present. Patient c/o headache 12/11. CIWA assessment completed, patient scored 8. ED provider notified. Patient currently resting in his room in no apparent distress.
[2025-05-23 19:36] VITALS: BP 141/89; PULSE 111; RESP 18; TEMP 37; O2SAT 97
--- NOTE | 2025-05-23 19:49 | PC.NURSE ---
Patient medicated per MAR.
[2025-05-24 05:06] VITALS: BP 135/91; PULSE 120; RESP 18; TEMP 36.7; O2SAT 98
[2025-05-24 05:41] VITALS: PULSE 104; RESP 14; O2SAT 98
--- NOTE | 2025-05-24 08:50 | PC.NURSE ---
this nurse obtained report from trae, patient a&ox3, rr equal/non labored, patient ciwa of 7- had complaint of headache as well, pt was medicated per order and given po ativan for ciwa as well as tylenol for headache. pt calm, resting, plan of care ongoing
[2025-05-24 16:20] VITALS: BP 124/75; PULSE 138; RESP 16; TEMP 36.5; O2SAT 98
--- NOTE | 2025-05-24 16:27 | PC.NURSE ---
Received call from ME Coordinator Cecil who requested additional information be sent over for pt admission to the [facility]. This RN send over a copy of pts labs (CBC, CMP, LFTs, UA and Utox) as well as a copy of pts EKG and provider note. All info sent around 1615
[2025-05-24 18:51] VITALS: BP 122/79; PULSE 114; RESP 16; TEMP 36.7; O2SAT 99
[2025-05-24 18:52] VITALS: BP 122/79; PULSE 114; RESP 16; TEMP 36.7; O2SAT 99
--- NOTE | 2025-06-12 04:36 | PC.NURSE ---
Belongings located in [facility]. [facility] Belongings given to Security for Lost and found at this time.
== END 2025-05-24 18:53 ==
PROVIDERS: Physician Assistant Medical; Emergency Provider Emergency Medicine
DX: F10.129 Alcohol abuse with intoxication, unspecified (principal); Y90.4 Blood alcohol level of 80-99 mg/100 ml; R45.851 Suicidal ideations; F14.90 Cocaine use, unspecified, uncomplicated; Z51.81 Encounter for therapeutic drug level monitoring; Z79.899 Other long term (current) drug therapy
CPT/HCPCS: 36415; 80307; 99285; S9485